=== PATIENT | male | born 1990 | race Caucasian/White ===

== ENCOUNTER 2017-10-30 18:52 | Emergency (ER) | payer SELFPAY ==
[2017-10-30] MEDS ORDERED: LORazepam 2 MG/ML INJ ONE (19:06)
[2017-10-30] MEDS ORDERED: LORazepam 2 MG/ML INJ IVP ONE (19:07)
[2017-10-30 19:39] LABS: PLATELET COUNT 298 10^3/uL (150-400)
--- NOTE | 2017-10-30 19:46 | EDPHY ---
General - History Smoking Status: Never smoked Time Seen by Provider: 10/30/17 19:39 Narrative: CHIEF COMPLAINT: Fall, seizure HISTORY OF PRESENT ILLNESS: Patient presents with friend at bedside. He is amnestic to details of the event. He knows he was long boarding but does not recall what happened after that. She states that he fell backwards, striking his head on the concrete. He then began to complain of headache and neck pain and "like I was going to have a seizure." She reports a brief, less than 2 min episode of generalized tonic-clonic type activity. He was reportedly postictal prior to arrival and somewhat combative requiring Ativan IV. At this time he complains of a mild headache and neck pain but no chest, abdominal or back pain. No bleeding from the site where he struck his head. He does have a history of seizures over the past 3 years, for which she takes marijuana and CBD oils only. He does not take any prescription medications. No other associated complaints or modifying factors. REVIEW OF SYSTEMS: Ten systems reviewed and are negative unless otherwise noted in the HPI PCP: None locally SPECIALISTS: None locally PAST MEDICAL HISTORY: Seizure disorder PAST SURGICAL HISTORY: "facial surgery" SOCIAL HISTORY: Recently quit smoking but still uses vapor eyes nicotine. Occasional alcohol use. Frequent marijuana and CBD use. Lives here independently. Recently moved from [place] FAMILY HISTORY: Noncontributory EXAMINATION General Appearance: Alert, no distress Head: normocephalic, atraumatic. No Naranjo sign. No raccoon eyes. No depression or hematoma Eyes: Pupils equal and round, no conjunctival pallor or injection. EOMs intact with no nystagmus or dysconjugate gaze ENT, Mouth: Mucous membranes moist. Airway widely patent Neck: C-collar in place. The anterior neck is unremarkable with midline trachea no crepitus. I did not remove the C-collar Respiratory: Lungs are clear to auscultation. No wheezing, rhonchi or crackles Cardiovascular: Tachycardic rate at 106 beats per minute. Regular rhythm no murmur. Good signs of perfusion distally Gastrointestinal: Abdomen is soft and nontender Back: non-tender, no bony abnormalities Neurological: GCS 15. alert to person, place and time. Disoriented to details of the scenario. No focal deficits. No pronator drift. Normal finger-to- nose. Strength is symmetric in all 4 limbs Skin: Warm and dry, no rash. No petechiae or purpura. No laceration Extremities: Nontender, no pedal edema Psychiatric: Mood and affect normal DIFFERENTIAL DIAGNOSES: Including but not limited to seizure, closed head injury, intracranial hemorrhage, concussion, contusion MDM: 7:40 p.m. Reported mechanical fall with closed head injury with subsequent seizure activity described. He is awake and alert no acute distress. He does have a headache and neck pain. He is in a C-collar was placed prior to arrival, thus I have ordered CT scans of the head and cervical spine. Mild tachycardic but no acute distress. Laboratory studies pending. 8:30 p.m. Laboratory studies within normal limits. I have been notified by radiologist that the CT scan of the head is unremarkable. CT scan of the cervical spine reveals a possible subtle fracture of the transverse process on the right side of C5. 8:40 p.m. Case discussed with on-call neurosurgeon Dr. Marii Fuentes. She has reviewed the images. She agrees with the assessment. She recommends no collar and no formal follow-up necessary for this. She is happy to see the patient but no further recommendations. 9:00 p.m. Patient re-evaluated. His laboratory studies are all within normal limits and appropriate for his presentation. His cervical collar has been cleared by Dr. Thibodeaux as it was applied by EMS. He is awake alert no acute distress. He exhibits no evidence of status epilepticus or any seizure-like activity. He is fully ambulatory with no difficulty or assistance. I do feel he is stable for discharge home. We discussed primary care follow-up and Neurology follow-up. I recommend that he reconsider medications for seizure disorder. We discussed ED precautions for any further seizure activity, headache, neck pain, motor sensory complaints. He is discharged home in stable condition. SUPERVISION: Patient was independently examined, but I discussed the case with my secondary supervising physician Dr. Thibodeaux ([facility]) Medical Decision Making: I also saw the patient at 9:00 p.m.. She reviewed the history of hitting his head after falling off a skateboard having a seizure. We talked about previous seizure disorder. We discussed treatment. We reviewed the imaging studies which shows possible avulsion or transverse process fracture. I removed the patient's cervical collar. He has some discomfort in the anterior part of his neck. He does not have pain over the cervical spine. After removal and palpation of the cervical spine gentle passive and active range of motion elicits no tenderness ordered neurologic findings. The cervical collar is discontinued by me. (Hong Thibodeaux) - Objective Vital Signs: Initial Vital Signs Temperature (C) 98.1 F 10/30/17 19:02 Heart Rate 78 10/30/17 19:02 Respiratory Rate 18 10/30/17 19:02 Blood Pressure 125/78 H 10/30/17 19:02 O2 Sat (%) 96 10/30/17 19:02 O2 Delivery Mode Room Air Allergies/Adverse Reactions: No Known Allergies Allergy (Unverified 10/30/17 19:05) Home Medications: Medication Instructions Recorded Marijuana 10/30/17 Naproxen 500 mg PO BID #14 tablet 10/30/17 Laboratory Results: Laboratory Results 10/30/17 18:45 10/30/17 18:45 Medications Given: Discontinued Medications Lorazepam (Ativan Injection) 1 mg IVP EDNOW ONE Stop: 10/30/17 19:08 Last Admin: 10/30/17 19:08 Dose: 1 mg Departure - Departure Disposition: Home, Routine, Self-Care Clinical Impression: Seizure Cervical transverse process fracture Qualifiers: Encounter type: initial encounter Fracture type: closed Qualified Code(s): S12.9XXA - Fracture of neck, unspecified, initial encounter Closed head injury Qualifiers: Encounter type: initial encounter Qualified Code(s): S09.90XA - Unspecified injury of head, initial encounter Condition: Good Instructions: Concussion (ED), Head Injury (ED), Recurrent Seizures in Adults ( ED) Additional Instructions: 1. Recommend helmet when skateboarding 2. Contact [facility] for outpatient follow-up to establish his primary care physician 3. Contact Dr. Umanzor for outpatient neurology follow-up 4. ED precautions as discussed Referrals: Marii Fuentes DO [Doctor of Osteopathy] - As per Instructions [facility],. [Clinic] - As per Instructions Mike Umanzor DO [Medical Doctor] - As per Instructions Prescriptions: Naproxen 500 mg PO BID #14 tablet
[2017-10-30 19:58] LABS: CREATINE KINASE 246 IU/L (0-224)
[2017-10-30 21:10] VITALS: BP 135/79
== END 2017-10-30 21:17 | disposition home or self-care (01) ==
DX: S12.9XXA Fracture of neck, unspecified, initial encounter (principal); S09.90XA Unspecified injury of head, initial encounter; G40.909 Epilepsy, unspecified, not intractable, without status epilepticus; W18.09XA Striking against other object with subsequent fall, initial encounter; Y99.8 Other external cause status; Y93.89 Activity, other specified
CPT/HCPCS: 96374; G0480; J2060